=== PATIENT | female | born 1960 | race Two or more races ===

== ENCOUNTER → 2020-11-26 | Outpatient (CLI) | payer MEDICAID | END | disposition home or self-care (01) | LOC: Rad HDHVI 13:03 | PROVIDERS: ATTEND Internal Medicine | DX: R07.89 Other chest pain (principal) | CPT/HCPCS: 93306 ==

== ENCOUNTER → 2020-11-28 | Outpatient (CLI) | payer MEDICAID ==
[~2020-11-28] VITALS: Ht 170.2 cm; Wt 85.3 kg
== END | disposition home or self-care (01) ==
LOC: Rad HDHVI 12:53
PROVIDERS: ATTEND Internal Medicine
DX: I10 Essential (primary) hypertension (principal); E11.9 Type 2 diabetes mellitus without complications; E78.5 Hyperlipidemia, unspecified; R94.31 Abnormal electrocardiogram [ECG] [EKG]; I25.2 Old myocardial infarction; Z82.49 Family history of ischemic heart disease and other diseases of the circulatory system; Z13.0 Encounter for screening for diseases of the blood and blood-forming organs and certain disorders involving the immune mechanism
CPT/HCPCS: 78452; 93017; 96374; A9500

== ENCOUNTER → 2022-07-05 22:11 | Emergency (ER) | payer MEDICAID | END | disposition left against medical advice (07) | LOC: ER 22:11 | DX: I10 Essential (primary) hypertension (principal); R73.9 Hyperglycemia, unspecified; Z53.21 Procedure and treatment not carried out due to patient leaving prior to being seen by health care provider | CPT/HCPCS: 82962 ==

== ENCOUNTER 2022-10-02 17:00 | Emergency (ER) | payer MEDICAID ==
[~2022-10-02] VITALS: Ht 167.6 cm; Wt 83.2 kg
[2022-10-02 17:39] VITALS: BP 119/71
[2022-10-02 18:20] LABS: Basophils # (auto) 0.2 10 ^3/uL (0-0.2); Basophils % (auto) 2.7 % (0.0-2.0); Eosinophils # (auto) 0.3 10 ^3/uL (0-0.8); Eosinophils % (auto) 3.1 % (0.0-7.0); Hematocrit 38.5 % (36.0-46.0); Lymphocytes # (auto) 3.9 10 ^3/uL (0.4-5.4); Lymphocytes % (auto) 45.3 % (10.0-50.0); Mean Corpuscular Hemoglobin 30.3 pg (28.0-32.0); Mean Corpuscular Hgb Conc. 33.7 g/dL (32.0-36.0); Monocytes # (auto) 0.8 10 ^3/uL (0-1.3); Monocytes % (auto) 8.7 % (0.0-12.0); Neutrophils # (auto) 3.5 10 ^3/uL (1.6-8.6); Neutrophils % (auto) 40.2 % (37.0-80.0); Nucleated Red Blood Cells % 0.1 %; Red Blood Cells 4.28 10^6/uL (4.0-5.20); Red Cell Distribution Width 14.8 % (11.8-14.3); White Blood Cell 8.7 10^3/uL (4.4-10.8)
[2022-10-02 18:38] LABS: Albumin 3.6 g/dL (3.4-5.0); Calcium 9.1 mg/dL (8.5-10.1); Potassium 4.2 mmol/L (3.5-5.1)
[2022-10-02 18:42] LABS: BUN/Creatinine Ratio 27.4; Bilirubin, Total 0.3 mg/dL (0.2-1.0); Total Protein 7.7 g/dL (6.4-8.2)
[2022-10-02 18:49] LABS: Urine Bacteria NONE SEEN /hpf (None Seen); Urine Blood Negative /uL (Negative); Urine Specific Gravity 1.016 (1.001-1.035); Urine WBC 4 /hpf (0 - 5)
== END 2022-10-02 22:46 | disposition home or self-care (01) ==
LOC: ER 17:00
DX: R42 Dizziness and giddiness (principal); E11.65 Type 2 diabetes mellitus with hyperglycemia
CPT/HCPCS: 36415; 80053; 81001; 82962; 85025

== ENCOUNTER 2023-07-05 16:09 | Emergency (ER) | payer MEDICAID ==
[~2023-07-05] VITALS: Ht 167.6 cm; Wt 83.0 kg
[2023-07-05 17:11] LABS: Basophils # (auto) 0.1 10 ^3/uL (0-0.2); Basophils % (auto) 0.8 % (0.0-2.0); Eosinophils # (auto) 0.2 10 ^3/uL (0-0.8); Hematocrit 38.5 % (36.0-46.0); Hemoglobin 12.6 g/dL (12.2-16.2); Lymphocytes # (auto) 3.9 10 ^3/uL (0.4-5.4); Lymphocytes % (auto) 48.5 % (10.0-50.0); Mean Corpuscular Hemoglobin 30.1 pg (28.0-32.0); Mean Corpuscular Hgb Conc. 32.8 g/dL (32.0-36.0); Mean Corpuscular Volume 91.7 fL (80.0-100.0); Monocytes # (auto) 0.5 10 ^3/uL (0-1.3); Monocytes % (auto) 5.7 % (0.0-12.0); Neutrophils # (auto) 3.4 10 ^3/uL (1.6-8.6); Nucleated Red Blood Cells % 0.1 %; Red Blood Cells 4.19 10^6/uL (4.0-5.20); Red Cell Distribution Width 14.3 % (11.8-14.3)
[2023-07-05 17:48] LABS: Alanine Aminotransferase 15 U/L (7-40); Albumin 4.3 g/dL (3.2-4.8); Alkaline Phosphatase 81 U/L (46-116); Anion Gap 7 (5-15); Aspartate Aminotransferase 15 U/L (13-40); Bilirubin, Total 0.3 mg/dL (0.2-1.0); Blood Urea Nitrogen 19 mg/dL (9-23); Calcium 9.6 mg/dL (8.7-10.4); Carbon Dioxide 28 mmol/L (20-30); Chloride 102 mmol/L (98-107); Glucose 222 mg/dL (74-106); Potassium 3.7 mmol/L (3.5-5.1); Sodium 137 mmol/L (136-145); Total Protein 7.4 g/dL (5.7-8.2)
[2023-07-05 22:07] VITALS: BP 132/60; PULSE 56; RESP 16; TEMP 98; O2SAT 94
== END 2023-07-05 22:09 | disposition home or self-care (01) ==
LOC: ER 16:09
DX: R42 Dizziness and giddiness (principal); R55 Syncope and collapse; E11.65 Type 2 diabetes mellitus with hyperglycemia; J45.909 Unspecified asthma, uncomplicated; I10 Essential (primary) hypertension; I25.2 Old myocardial infarction; E78.5 Hyperlipidemia, unspecified; R07.89 Other chest pain
CPT/HCPCS: 36415; 71045; 80053; 82962; 84484; 85025; 93005

== ENCOUNTER 2023-11-21 20:04 | Emergency (ER) | payer MEDICAID ==
[~2023-11-21] VITALS: Ht 167.6 cm; Wt 77.0 kg
[2023-11-22] MEDS ORDERED: BACL10TA PO (00:43)
[2023-11-22] MEDS ORDERED: HYDR-4902 PO (00:43)
[2023-11-22] MEDS ORDERED: DexAMETHasone SOD PHOS 10MG/1ML VIAL INJ IM ONE (00:45)
[2023-11-22 00:49] VITALS: BP 129/81; PULSE 71; RESP 16; TEMP 98; O2SAT 99
[2023-11-22] MEDS ORDERED: KETOROLAC TROMETH 30 MG/ML 1ML VIAL ONE (00:57)
[2023-11-22] MEDS ORDERED: HYDROcodone-ACET 5/325MG TAB ONE (00:57)
[2023-11-22] MEDS: KETOROLAC TROMETH 60MG/2ML VIAL IM ONE (01:04)
[2023-11-22] MEDS: HYDROcodone-ACET 5/325MG TAB PO ONE (01:05)
== END 2023-11-22 01:18 | disposition home or self-care (01) ==
LOC: ER 20:04
DX: M79.651 Pain in right thigh (principal); M54.30 Sciatica, unspecified side; I10 Essential (primary) hypertension; E11.9 Type 2 diabetes mellitus without complications; E78.5 Hyperlipidemia, unspecified; M79.661 Pain in right lower leg
CPT/HCPCS: 73552; 93971; 96372; 99285; J1885

== ENCOUNTER 2024-07-05 07:11 | Day surgery (SDC) | payer MEDICARE, MEDICAID ==
[~2024-07-05] VITALS: Ht 167.6 cm; Wt 78.5 kg
[2024-07-05] VITALS (7 sets, daily range): BP systolic 105–161; BP diastolic 71–97; PULSE 54–65; RESP 12–20; O2SAT 96–100
[2024-07-05] MEDS ORDERED: LIDOCAINE 2%HCL (LOCAL ANESTH.) INJ 20ML MDV ONE (08:33)
[2024-07-05] MEDS ORDERED: ANGIOMAX 250 MG VIAL IV ONE (08:37)
[2024-07-05] MEDS ORDERED: HEPARIN SODIUM (PORCINE) 5000 UNITS/ML 1ML VIAL ONE (08:37)
[2024-07-05] MEDS ORDERED: fentaNYL CITRATE 100 MCG/2 ML VL ONE (08:38)
[2024-07-05] MEDS ORDERED: MIDAZOLAM HCL 2MG/2ML 2ml VIAL (1mg/ml) ONE (08:38)
[2024-07-05] MEDS ORDERED: VERAPAMIL 2.5MG/ML INJ 2ML VIAL IV ONE (08:38)
[2024-07-05] MEDS ORDERED: SODIUM CHL 0.9% 0 ML ONE (08:38)
[2024-07-05] MEDS ORDERED: NITROGLYCERIN 50MG/250ML 250 ML IV ONE (08:42)
[2024-07-05] MEDS ORDERED: ASPI-543 PO (09:54)
[2024-07-05] MEDS ORDERED: ENAL1TAB42 PO (09:54)
[2024-07-05] MEDS ORDERED: EMPA1TAB PO (09:54)
[2024-07-05] MEDS ORDERED: SEMA7TAB2 PO (09:54)
[2024-07-05] MEDS ORDERED: HYDR25TA4 PO (09:54)
[2024-07-05] MEDS ORDERED: ATOR20TA PO (09:54)
[2024-07-05] MEDS ORDERED: METO25TA93 PO (09:54)
--- NOTE | 2024-07-05 10:04 | DVHOP2 ---
Operative Report Procedures performed: Left heart catheterization and bilateral coronary angiogram Moderate sedation Diagnosis: Nonobstructive coronary artery disease (minor luminal irregularities) Slow flow into coronaries points toward microvascular disease LVEF of 55% with LVEDP of 11 mm Hg Cardiac suggestion for management: Optimized medical therapy Lifestyle and risk factor modifications Findings: LVEF of 55% LVEDP: 11 mm Hg There was no transaortic valve pressure gradient Left main: Left main was coming off the left sinus of Valsalva. There was no angiographic evidence of disease in left main. LAD: LAD was coming off the left main. LAD was tortuous throughout its course. LAD had minor luminal irregularities. D1 and D2 were moderate-sized vessels. D3 was small-sized vessel. LAD throughout its course and branches had minor luminal irregularities. LAD had slow flow pointing to microvascular disease. LCX: LCX was coming off the left main. OM1 was a small-sized vessel. OM2 was a moderate-sized vessel. Om 3 was a large-sized vessel. LCX throughout its course and branches did not reveal any angiographic evidence of disease. RCA: RCA was coming off the right sinus of Valsalva. It was the dominant vessel and provided RPDA/RPLS. RCA throughout its course and branches did not reveal any angiographic evidence of disease Presentation: Patient is a 64-year-old female who presented to the office with dyspnea on exertion and chest pain. Past medical history includes diabetes mellitus, hypertension, hyperlipidemia and carotid artery plaques. Echocardiogram of January 2024 revealed ejection fraction of 40-45%, mild concentric left ventricular hypertrophy, moderate left atrial enlargement, mild MR/max/TR/PI and right ventricular systolic pressure of 34 mm Hg. Nuclear stress test of September 2023 was abnormal and the patient was sent for cardiac catheterization. Procedure: After obtaining informed consent, the patient was brought to the dental lab technician. She was prepped and draped in sterile fashion. Right radial artery was used for access site. 1 mg of Versed and 25 mcg of fentanyl were used for moderate sedation. Using modified Seldinger technique, the right radial artery was accessed and a 6 [place] slender sheath was inserted into it. 100 mcg of nitroglycerin and 2.5 mg of verapamil were given as a cocktail into the right radial sheath. 4000 units of heparin was given peripherally. A 5 [place] tiger 4 diagnostic catheter was used to perform left heart catheterization (obtaining pressures and performing left ventriculography) and bilateral coronary angiography. There was no indication for any transcatheter revascularization. Total bleeding was less than 5 mL. Right radial artery access site was managed by deploying a TR band. There was no dissection/hematoma/perforation. Patient tolerated procedure with no complication. Fluoroscopy time: 4.7 minutes contrast: 50 mL of Visipaque ANETTE CABRERA MD Jul 05, 2024 10:04
--- NOTE | 2024-07-07 12:42 | ECG ---
[facility] Test Date: 2024-07-05 Test Time: 09:29:56 Pat Name: GEOFFREY PARIKH Department: Room: Gender: F Racecar Driver: OSVALDO : 1960 Requested By: ANETTE CABRERA Order Number: [id number] Reading MD: Irvin Holman Measurements Intervals [place] Rate: 62 P: 54 HI: 162 QRS: -10 QRSD: 100 T: 47 QT: 464 QTc: 470 Interpretive Statements Normal sinus rhythm Electronically Signed On 07-08-2024 0:51:06 PST by Irvin Holman Please click the below link to view image of tracing.
== END 2024-07-05 11:48 | disposition home or self-care (01) ==
LOC: CATH 07:11
PROVIDERS: ATTEND Internal Medicine Cardiovascular Disease
DX: R07.89 Other chest pain (principal); R94.39 Abnormal result of other cardiovascular function study; R06.09 Other forms of dyspnea; I25.10 Atherosclerotic heart disease of native coronary artery without angina pectoris; E11.9 Type 2 diabetes mellitus without complications; E78.5 Hyperlipidemia, unspecified; I11.9 Hypertensive heart disease without heart failure; Z79.899 Other long term (current) drug therapy; Z98.890 Other specified postprocedural states; Z79.84 Long term (current) use of oral hypoglycemic drugs
CPT/HCPCS: 93458; C1769; C1894; J1644; J2250; J3010; J7030; 99152